=== PATIENT | male | born 1985 | race Hispanic/Latino ===

== ENCOUNTER 2020-11-12 19:50 | Emergency (ER) | payer SELFPAY ==
[2020-11-12] MEDS ORDERED: Lidocaine 1% w/Epinephrine 1:100K 20 ML VIAL ONE (20:05)
[2020-11-12] MEDS ORDERED: Amoxicillin/Potassium Clav 875 MG TAB ONE (20:45)
[2020-11-12] MEDS ORDERED: Boostrix 0.5 ML (Tdap) VIAL ONE (20:45)
== END 2020-11-12 20:58 | disposition home or self-care (01) ==
LOC: MADERS 19:50
DX: L02.411 Cutaneous abscess of right axilla (principal); Z87.891 Personal history of nicotine dependence
CPT/HCPCS: 10060; 90471; 90715

== ENCOUNTER 2020-11-13 12:29 | Emergency (ER) | payer SELFPAY | END 2020-11-13 13:15 | disposition home or self-care (01) | LOC: MADERS 12:29 | DX: Z48.817 Encounter for surgical aftercare following surgery on the skin and subcutaneous tissue (principal); Z87.891 Personal history of nicotine dependence; Z79.899 Other long term (current) drug therapy | CPT/HCPCS: 99282 ==